=== PATIENT | male | born 1970 | race African-American/Black ===

== ENCOUNTER 2016-05-30 21:57 | Emergency (ER) | payer BC ==
--- NOTE | ~2016-05-30 | CT4 ---
[facility] A Service of [facility] RADIOLOGY TEXT RESULTS PATIENT: ISABELLE STEARNS LOCATION: [facility] : 70 UNIT #: [id number] AGE: [address]: Conor Rosas MD SEX: M ORDER DR: [id number] [facility] [address] [place], [place] [address] [id number] MR#: [id number] #: [id number] NAME: ISABELLE STEARNS. : 1970 SEX: M STUDY DATE/TIME: 05/30/2016 22:03 UNIT: [facility] ROOM: STUDY DESCRIPTION: CT Abd and Pelv Wo Cont Attending Physician: Conor Rosas M.D. Ordering Physician: Conor Rosas M.D. Primary Care Physician: Bernardino Trejo M.D. MEDICAL IMAGING REPORT This report is preliminary unless electronic signature is present EXAM Abdomen and pelvis CT no contrast, 05/30/2016 INDICATION 45-year-old male with flank pain on the right, upper back pain symptoms today. TECHNIQUE Noncontrast CT of the abdomen and pelvis was performed. No comparisons. This CT exam was performed with one or more of the following radiation dose reduction techniques: automatic exposure control, adjustment of mA and/or kV according to patient size, and iterative reconstruction. FINDINGS Exam markedly degraded by noncontrast technique. There is levoscoliosis of the lumbar spine and associated secondary degenerative change. There is old healed granulomatous disease. Included lung bases otherwise clear. No effusion or pericardial effusion. Aorta demonstrates no aneurysm. There are granulomatous changes of the spleen. The adrenal glands and pancreas are unremarkable. Gallbladder unremarkable. Liver demonstrates equivocal mild fatty infiltration. Kidneys demonstrate no hydronephrosis or radiopaque stone. Visualized ureters unremarkable. There is a small umbilical hernia containing fat only. CT PELVIS: Bladder unremarkable. Prostate within normal limits. No drainable fluid collection in the pelvis. Inguinal hernia on the left contains fat only. Bowel demonstrates no obstruction or focal inflammatory change. Normal appendix. Inguinal canal is otherwise unremarkable. There is no suspicious bone lesion. There are degenerative changes in the thoracolumbar spine related to the scoliosis. No STS. [facility] A Service of [facility] RADIOLOGY TEXT RESULTS PATIENT: ISABELLE STEARNS LOCATION: [facility] #: [id number] : 70 UNIT #: [id number] AGE: [address]: Conor Rosas MD SEX: M ORDER DR: compression fracture or malalignment. IMPRESSION 1. Negative noncontrast abdomen and pelvis CT. Appendix normal. No hydronephrosis or radiopaque stone. 2. Scoliosis of the thoracolumbar spine and secondary degenerative changes. No acute fracture or malalignment. 3. Inguinal hernia on the left contains fat only. Dictated by... Evelio Otero M.D. THIS IS AN ELECTRONICALLY VERIFIED REPORT Evelio Otero M.D. at 05/31/2016 6:29 AM Prudence TD: 05/30/2016 23:52 JOB #: [id number] MEDICAL IMAGING REPORT Page 1 of 1 COPY
[2016-05-30 19:58] LABS: BASOPHIL# 0.1 X10e3 (0-0.3); BASOPHIL% 1.8 % (0-2.5); EOSINOPHIL# 0.1 X10e3 (0-0.7); EOSINOPHIL% 1.4 % (0.0-7.0); HEMATOCRIT 46.3 % (38.0-50.0); HEMOGLOBIN 15.1 gm/dL (13.0-16.0); LYMPHOCYTE# 2.2 X10e3 (1.0-3.5); LYMPHOCYTE% 30.6 % (17.0-45.0); MEAN CELL VOLUME 86.8 FL (83-96); MEAN CORPUSCULAR HEMOGLOBIN 28.3 PG (28-34); MEAN CORPUSCULAR HGB CONC 32.7 g/dL (30-36); MEAN PLATELET VOLUME 8.5 FL (6.5-11.5); MONOCYTE# 0.8 X10e3 (0-1.0); MONOCYTE% 11.1 % (3.0-12.0); NEUTROPHIL# 3.9 X10e3 (1.5-7.1); NEUTROPHIL% 55.1 % (40-75); PLATELET COUNT 256 X10e3 (140-420); RED BLOOD COUNT 5.34 X10e (3.90-5.60); WHITE BLOOD COUNT 7.1 X10e3 (4.0-10.5)
[2016-05-30 20:06] LABS: DIFF IND NO
[2016-05-30 20:36] LABS: ALBUMIN SERUM 4.6 g/dL (3.5-5.0); BILIRUBIN, DIRECT 0.1 mg/dL (0.0-0.2); BILIRUBIN,INDIRECT 0.6 mg/dL (0.0-0.9); BILIRUBIN,TOTAL 0.7 mg/dL (0.2-2.0); BUN/CREATININE RATIO 18.88; CALCIUM SERUM 9.7 mg/dL (8.4-10.2); CREATININE SERUM 0.9 mg/dL (0.6-1.4); GLOM FILT RATE Estimated 119.1 mL/min (>60); POTASSIUM 3.4 mmol/L (3.5-5.1); PROTEIN TOTAL SERUM 7.9 g/dL (6.0-8.3)
[2016-05-30 21:21] LABS: URINE SOURCE CLEAN CATCH
[2016-05-30 22:31] LABS: URINE APPEARANCE CLEAR; URINE BILIRUBIN NEG (NEG); URINE BLOOD NEG (NEG); URINE COLOR YELLOW; URINE GLUCOSE NEG (NEG); URINE KETONE NEG (NEG); URINE LEUKOCYTE ESTERASE NEG (NEG); URINE NITRATE NEG (NEG); URINE PH 7.5 (5-8); URINE PROTEIN NEG (NEG); URINE SPECIFIC GRAVITY 1.019 (1.003-1.035); URINE UROBILINOGEN 0.2 MG/DL (NEG)
[2016-05-30 22:42] LABS: CULTURE INDICATED? NO
== END 2016-05-30 23:20 | disposition home or self-care (01) ==
LOC: CED 21:57
PROVIDERS: Emergency Medicine
DX: R10.9 Unspecified abdominal pain (principal); I10 Essential (primary) hypertension; E78.5 Hyperlipidemia, unspecified; Z88.8 Allergy status to other drugs, medicaments and biological substances
CPT/HCPCS: 36415; 74176; 80048; 80076; 81003; 82150; 83690; 85025; 99284